=== PATIENT | female | born 1985 | race Caucasian/White ===

== ENCOUNTER 2016-12-28 11:11 | Emergency (ER) | payer MEDICAID, OTHER ==
[~2016-12-28] VITALS: Ht 165.1 cm; Wt 74.3 kg
[~2016-12-28 11:11] MED LIST: VENTAER INH
[2016-12-28 11:15] VITALS: BP 118/75; PULSE 88; RESP 16; TEMP 98.9; O2SAT 98
--- NOTE | 2016-12-28 13:09 | PD ---
HPI . Nausea, vomiting and diarrhea for several days Chief Complaint: GI Complaint Time Seen by Provider: 13:09 Travel History International Travel<30 days: No Contact w/Intl Traveler<30days: No Traveled to known affect area: No History of Present Illness HPI 31-year-old female here with complaints of nausea, vomiting, diarrhea for 4 days. His morning patient had 4 episodes of liquid stool. She initially started with nausea, vomiting and diarrhea on of last week. She says her symptoms have persisted since then. There was one period of time where she felt it was getting better, but her diarrhea seemed to return this morning. This prompted her to the emergency department. She admits to some cramping epigastric pain, however it is not present at this moment. She is also not experiencing any nausea or vomiting right now. 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 It is possible that she was exposed to salmonella, but is uncertain. [facility] Past Medical History Asthma: Yes Diminished Hearing: No Kidney Stones: Yes Respiratory: Yes (ASTHMA) Immunizations Current: Yes Tetanus Vaccination: < 5 Years Influenza Vaccination: No ?: Not LMP: 12/16/2016-IUD Past Surgical History Surgical History: No Previous Surgery Oral Surgery: Yes (wisdom teeth) Social History Alcohol Use: Yes (Occ.) Tobacco Use: No Substance Use: No Allergies-Medications (Allergen,Severity, Reaction): Coded Allergies: Cipro (Verified Allergy, Severe, ITCHING AND THROAT CLOSING, 12/28/16) Penicillin (Verified Allergy, Severe, 12/28/16) BREATHING PROB Reported Meds & Prescriptions Reported Meds & Active Scripts Active Bactrim DS (Sulfamethoxazole-Trimethoprim) 800-160 Mg Tab 1 Tab PO BID Review of Systems General / Constitutional: No: Fever Eyes: No: Visual changes HENT: No: Headaches Cardiovascular: No: Chest Pain or Discomfort Respiratory: No: Shortness of Breath Gastrointestinal: Positive: Nausea, Vomiting, Diarrhea, Abdominal Pain (cramps) Genitourinary: No: Dysuria Musculoskeletal: No: Pain Skin: No Rash Neurologic: No: Weakness Psychiatric: No: Depression Endocrine: No: Polydipsia Hematologic/Lymphatic: No: Easy Bruising Physical Exam Narrative GENERAL: AAO x 3, no acute distress, Well-nourished, well-developed patient. SKIN: Warm and dry. No visible rashes or bruising. Skin turgor is normal. HEAD: Normocephalic and atraumatic. EYES: No scleral icterus. No injection or drainage. ENT: No nasal drainage noted. Mucous membranes pink. Airway patent. NECK: Supple, trachea midline. No JVD. CARDIOVASCULAR: Regular rate and rhythm without murmurs, gallops, or rubs. RESPIRATORY: Breath sounds equal bilaterally. No accessory muscle use. No rhonchi or rales. GASTROINTESTINAL: Abdomen soft, non-tender, nondistended. EXTREMITIES: No cyanosis or edema. BACK: Nontender without obvious deformity. No CVA tenderness. PSYCH: AAO x 3, normal affect. Data Data Last Documented VS Vital Signs Date Time Temp Pulse Resp B/P Pulse Ox O2 Delivery O2 Flow Rate FiO2 12/28/16 11:15 98.9 88 16 118/75 98 Orders Complete Blood Count With Diff (12/28/16 13:16) Comprehensive Metabolic Panel (12/28/16 13:16) Urinalysis - C+S If Indicated (12/28/16 13:16) Iv Access Insert/Monitor (12/28/16 13:16) Ed Urine Pregnancytest Poc (12/28/16 13:16) Sodium Chlor 0.9% 1000 Ml Inj (Ns 1000 M (12/28/16 13:30) Enteric Path (Stool) (12/28/16 13:58) Urine Culture (12/28/16 13:30) Labs Laboratory Tests Test 12/28/16 13:30 White Blood Count 10.0 TH/MM3 Red Blood Count 4.61 MIL/MM3 Hemoglobin 12.8 GM/DL Hematocrit 37.4 % Mean Corpuscular Volume 81.0 FL Mean Corpuscular Hemoglobin 27.7 PG Mean Corpuscular Hemoglobin 34.2 % Concent Red Cell Distribution Width 12.7 % Platelet Count 452 TH/MM3 Mean Platelet Volume 7.3 FL Neutrophils (%) (Auto) 77.9 % Lymphocytes (%) (Auto) 13.5 % Monocytes (%) (Auto) 6.5 % Eosinophils (%) (Auto) 1.7 % Basophils (%) (Auto) 0.4 % Neutrophils # (Auto) 7.9 TH/MM3 Lymphocytes # (Auto) 1.3 TH/MM3 Monocytes # (Auto) 0.6 TH/MM3 Eosinophils # (Auto) 0.2 TH/MM3 Basophils # (Auto) 0.0 TH/MM3 CBC Comment DIFF FINAL Differential Comment Urine Color YELLOW Urine Turbidity HAZY Urine pH 6.5 Urine Specific [place] 1.021 Urine Protein TRACE mg/dL Urine Glucose (UA) NEG mg/dL Urine Ketones TRACE mg/dL Urine Occult Blood SMALL Urine Nitrite NEG Urine Bilirubin NEG Urine Leukocyte Esterase LARGE Urine RBC 4-9 /hpf Urine WBC 50-99 /hpf Urine Squamous Epithelial 0-5 /hpf Cells Urine Bacteria MOD /hpf Urine Mucus FEW /lpf Microscopic Urinalysis Comment CULTURE INDICATED Sodium Level 142 MEQ/L Potassium Level 3.7 MEQ/L Chloride Level 107 MEQ/L Carbon Dioxide Level 26.1 MEQ/L Anion Gap 9 MEQ/L Blood Urea Nitrogen 20 MG/DL Creatinine 0.76 MG/DL Estimat Glomerular Filtration 89 ML/MIN Rate Random Glucose 87 MG/DL Calcium Level 8.4 MG/DL Total Bilirubin 0.2 MG/DL Aspartate Amino Transf 8 U/L (AST/SGOT) Alanine Aminotransferase 21 U/L (ALT/SGPT) Alkaline Phosphatase 68 U/L Total Protein 7.8 GM/DL Albumin 3.5 GM/DL MDM Medical Decision Making Medical Screen Exam Complete: Yes Emergency Medical Condition: Yes Medical Record Reviewed: Yes Differential Diagnosis viral gastroenteritis, salmonella gastroenteritis, IBS Narrative Course 31-year-old female here with complaints of nausea, vomiting, diarrhea for 4 days. His morning patient had 4 episodes of liquid stool. She initially started with nausea, vomiting and diarrhea on of last week. She says her symptoms have persisted since then. There was one period of time where she felt it was getting better, but her diarrhea seemed to return this morning. This prompted her to the emergency department. She admits to some cramping epigastric pain, however it is not present at this moment. She is also not experiencing any nausea or vomiting right now. 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 It is possible that she was exposed to salmonella, but is uncertain. Patient seen and examined. Labs and UA ordered I will also order stool cultures. I do not feel imaging is indicated as there is no significant findings on abdominal examination. Patient had some sensitivity to cipro (nausea) Will have to use bactrim which is a tertiary coverage for salmonella and will cover UTI (pending C&S) Patient was unable to leave stool sample. Recommend f/u with PCP for further testing if sxs persist After fluids she felt better. Patient verbalized understanding of instructions, questions were answered, and thanked me for their care. I advised them if their condition worsens, please return to the nearest emergency room for further care. Diagnosis Primary Impression: Gastroenteritis Additional Impression: Urinary tract infection Qualified Code: N30.01 - Acute cystitis with hematuria Patient Instructions: Dysuria (ED), General Instructions, Salmonella Infection (ED) Additional Instructions: Please return to emergency department if your symptoms return or worsen. Follow up with your primary care provider. Take medications as prescribed. Please establish with a primary care provider for any further testing and/or treatment. Scripts Sulfamethoxazole-Trimethoprim (Bactrim DS)800-160 Mg Tab1 Tab PO BID #20 TAB Prov:Joe Alonso MD 12/28/16 Disposition: 01 DISCHARGE HOME Condition: Stable Larissa Ellsworth Dec 28, 2016 13:09
[2016-12-28] MEDS ORDERED: SODIUM CHLOR 0.9% 1000 ML INJ 1,000 ML IV ONE (13:30)
[2016-12-28 13:42] LABS: AUTOMATED NEUTROPHIL # 7.9 TH/MM3 (1.8-7.7); BASOPHIL % 0.4 % (0.0-2.0); EOSINOPHIL # 0.2 TH/MM3 (0-0.4); EOSINOPHIL % 1.7 % (0.0-4.0); HEMATOCRIT 37.4 % (35.0-46.0); HEMO FLAGS DIFF FINAL; LYMPH % 13.5 % (9.0-44.0); LYMPHOCYTE # 1.3 TH/MM3 (1.0-4.8); MEAN CORPUSCULAR HEMOGLOBIN 27.7 PG (27.0-34.0); MEAN CORPUSCULAR HGB CONC 34.2 % (32.0-36.0); MONO % 6.5 % (0.0-8.0); NEUT % 77.9 % (16.0-70.0); PLATELET COUNT 452 TH/MM3 (150-450); RED BLOOD COUNT 4.61 MIL/MM3 (4.00-5.30); RED CELL DISTRIBUTION WIDTH 12.7 % (11.6-17.2)
[2016-12-28 13:50] LABS: CHLORIDE 107 MEQ/L (98-107); POTASSIUM 3.7 MEQ/L (3.5-5.1); SODIUM (NA) 142 MEQ/L (136-145)
[2016-12-28 13:51] LABS: BLOOD, URINE SMALL (NEG); GLUCOSE,URINE NEG (NEG); KETONE, URINE TRACE mg/dL (NEG); NITRITE,URINE NEG (NEG); PH, URINE 6.5 (5.0-8.5)
[2016-12-28 13:56] LABS: ANION GAP 9 MEQ/L (5-15); BICARBONATE 26.1 MEQ/L (21.0-32.0); BLOOD UREA NITROGEN 20 MG/DL (7-18)
[2016-12-28 13:57] LABS: URINE COLOR YELLOW (YELLW/STRAW)
[2016-12-28 13:58] LABS: MUCUS URINE FEW /lpf (OCC)
[2016-12-28 13:59] LABS: ALT (GPT) 21 U/L (10-53); AST (GOT) 8 U/L (15-37); BACTERIA, URINE MOD /hpf; COMMENT (UR) CULTURE INDICATED; CULTURE IF INDICATED CULTURE INDICATED; SQUAMOUS EPITHELIAL CELL URINE 0-5 /hpf (0-5)
[2016-12-28 14:00] LABS: GLOMERULAR FILTRATION RATE 89 ML/MIN (>89)
[2016-12-28 14:01] LABS: TOTAL BILIRUBIN ADULT 0.2 MG/DL (0.2-1.0)
[2016-12-28 14:02] LABS: ALKALINE PHOSPHATASE 68 U/L (45-117)
[2016-12-28] MEDS ORDERED: BACT800T5 PO (14:20)
[2016-12-28 15:35] VITALS: BP 114/63; PULSE 92; RESP 14; O2SAT 96
== END 2016-12-28 15:40 | disposition home or self-care (01) ==
LOC: PHEFT 11:11
DX: K52.9 Noninfective gastroenteritis and colitis, unspecified (principal); N39.0 Urinary tract infection, site not specified; Z87.442 Personal history of urinary calculi
CPT/HCPCS: 80053; 81001; 84703; 85025; 87086; 96360; 99284; J7030